=== PATIENT | male | born 1975 | race Caucasian/White ===

== ENCOUNTER 2024-02-10 08:13 | Emergency (ER) | payer MEDICARE, MEDICAID ==
[2024-02-10] VITALS (9 sets, daily range): BP systolic 104–162; BP diastolic 77–104
[~2024-02-10] VITALS: Ht 172.7 cm; Wt 99.0 kg
[2024-02-10] MEDS ORDERED: KETOROLAC TROMETHAMINE 30 MG/ML SDV IM ONE (08:25)
[2024-02-10] MEDS ORDERED: NAPROXEN500 MG PO (10:35)
== END 2024-02-10 11:09 | disposition home or self-care (01) ==
LOC: ED 08:13
DX: M54.50 Low back pain, unspecified (principal); M54.6 Pain in thoracic spine; G89.29 Other chronic pain; F32.A Depression, unspecified